=== PATIENT | female | born 1960 | race Caucasian/White ===

== ENCOUNTER 2020-01-26 09:35 | Outpatient (CLI) | payer OTHER | END 2020-01-26 09:47 | disposition home or self-care (01) | LOC: RX STUDY 09:35 | PROVIDERS: ATTEND Otolaryngology | DX: R13.13 Dysphagia, pharyngeal phase (principal) ==

== ENCOUNTER 2021-10-17 10:54 | Outpatient (CLI) | payer OTHER | END 2021-10-17 10:59 | disposition home or self-care (01) | LOC: SONOGRAMA 10:54 | PROVIDERS: ATTEND Pathology Anatomic Pathology & Clinical Pathology | DX: N63.32 Unspecified lump in axillary tail of the left breast (principal) ==